=== PATIENT | female | born 1970 | race Caucasian/White ===

== ENCOUNTER → 2020-01-05 17:54 | Outpatient (CLI) | payer OTHER, SELFPAY | PROVIDERS: PCP Internal Medicine; Referring Provider Nurse Practitioner; Visit Provider Nurse Practitioner | DX: Z20.828 Contact with and (suspected) exposure to other viral communicable diseases (principal) | CPT/HCPCS: 87635; G2023; U0003 ==

== ENCOUNTER 2022-11-27 16:59 | Emergency (ER) | payer OTHER, SELFPAY ==
[2022-11-27 17:02] VITALS: BP 144/89; PULSE 93; RESP 18; TEMP 36.6; O2SAT 98; BMI 24.3
--- NOTE | 2022-11-27 17:29 | EDS_ITS ---
HPI <GUDELIA Negro - Last Filed: 11/27/22 20:16> History of Present Illness Chief Complaint: Bite Narrative Narrative: Patient is a 51-year-old female with history of anxiety who presents to the emergency department for full body aches, ongoing fever and chills, bug bite to the right inner thigh. Patient states she started feeling ill this last weekend which was 4 to 5 days ago. She was camping at this time. [place] she [place] not know of any other bug that would have bit her. Patient has a redness circular area to the right inner thigh, she has been having fevers during the mornings and sometimes at night. She was seen by urgent care on Thursday, they were concerned of a possible UTI and started her on Augmentin. She has been on the Augmentin for the last 4 days with minimal relief. Patient states that her right leg is getting more painful. And she is here for evaluation. [facility] <GUDELIA Negro - Last Filed: 11/27/22 20:16> [facility] Medical History (Updated 11/27/22 @ 20:14 by GUDELIA Negro) Depression Home Medications Ibuprofen [Motrin] 800 mg PO TID PRN PRN Pain #20 tabs 03/19/16 [Rx Last Taken Unknown] ondansetron 4 mg disintegrating tablet 4 mg PO Q6H PRN PRN Nausea #20 tabs 03/19/16 [Rx Last Taken Unknown] doxycycline hyclate 100 mg capsule 100 mg PO BID #14 caps 11/27/22 [Rx Last Taken Unknown] Allergy/AdvReac Type Severity Reaction Status Date / Time No Known Allergies Allergy Verified 11/27/22 17:02 Social History Smoking Status: Former smoker ROS <GUDELIA Negro - Last Filed: 11/27/22 20:16> ROS ED ROS Narrative Constitutional: Negative for weight loss. Positive for fever, chills, weakness Eyes: Negative for vision loss, vision change, double vision ENT: Negative for any sore throat, ear pain, congestion Cardiovascular: Negative for any chest pain, tightness, palpitations Respiratory: Negative for any cough, sputum production, hemoptysis, dyspnea, dyspnea on exertion, orthopnea Gastrointestinal: Negative for any abdominal pain, nausea, vomiting, diarrhea, constipation, blood in stool, blood in vomit : Negative for any urinary frequency, dysuria, retention, blood in urine Muscle skeletal: Negative for any muscle joint pain, stiffness, arthralgias, neck pain, back pain. Positive for myalgias Neurological: Negative for any headache, syncope, numbness or tingling, dizziness Skin: Negative for any rashes, lumps, itching, abrasions, laceration. Patient does have a redness circular area to the right inner thigh Psychiatric: Negative for any depression, anxiety, stress, suicidal ideation, homicidal ideation Hematologic: Negative for any easy bruising, excessive bruising, easy bleeding Allergies: Negative for any eczema, hives, rash EXAM <GUDELIA Negro - Last Filed: 11/27/22 20:16> Physical Exam Narrative Exam Narrative: Vital signs reviewed. Patient appears generally well, patient is in no distress HEET: Head normocephalic atraumatic, TMs clear bilaterally. Posterior pharynx is clear, moist mucous membranes. Nares clear bilaterally. Neck: Supple with no lymphadenopathy or tenderness. No signs of meningismus, negative jolt sign. Cardiac: Regular rate and rhythm no murmurs gallops or rubs, equal peripheral pulses bilaterally. Respiratory: Lungs clear to auscultation bilaterally. No chest tenderness. Abdomen: Soft, nontender, nondistended. No abdominal bruit or pulsatile masses. No hepatosplenomegaly Extremities: No peripheral edema, no signs of gross trauma or deformity. Active full range of motion of all extremities. Neuro: Cranial nerves II through XII intact, no focal neurological deficits. On the right inner thigh, patient does have a 4 cm x 4 cm circular redness area with a darker red center. Does have a bull's-eye-like appearance. Skin: Clean dry and intact with no rash, purpura, petechiae, vesicles or pustules. Backs/flank: No CVA tenderness, no midline spinal tenderness, no deformity. Psych: Normal mood and affect. No SI, HI or acute psychosis. Const Vital Signs: 11/27/22 17:02 11/27/22 20:10 Temperature 98 F Temperature Source Temporal Pulse Rate 93 82 Respiratory Rate 18 18 Blood Pressure 144/89 H 124/74 H Blood Pressure Mean 107 Pulse Ox 98 97 Oxygen Delivery Method Room Air <Dr. Leonidas Jama MD - Last Filed: 11/27/22 20:02> Physical Exam Const Vital Signs: 11/27/22 17:02 11/27/22 20:10 Temperature 98 F Temperature Source Temporal Pulse Rate 93 82 Respiratory Rate 18 18 Blood Pressure 144/89 H 124/74 H Blood Pressure Mean 107 Pulse Ox 98 97 Oxygen Delivery Method Room Air [facility] <GUDELIA Negro - Last Filed: 11/27/22 20:16> [facility] Lab Data Labs: Laboratory Results - last 24 hr 11/27/22 11/27/22 11/27/22 17:42 17:42 18:56 WBC 5.4 RBC 4.82 Hgb 13.4 Hct 40.1 MCV 83.2 MCH 27.8 MCHC 33.4 RDW Std Deviation 48.7 H RDW Coeff of Ana 16.0 H Plt Count 219 MPV 9.1 Immature Gran % (Auto) 0.400 Neut % (Auto) 41.7 L Lymph % (Auto) 42.3 H Stanley % (Auto) 10.8 H Eos % (Auto) 3.9 Baso % (Auto) 0.9 Absolute Neuts (auto) 2.3 Absolute Lymphs (auto) 2.28 Nucleated RBC % 0 Differential Comment SCANNED Reactive Lymphocytes 1+ Sodium 140 Potassium 3.6 Chloride 108 H Carbon Dioxide 25.0 Anion Gap 7 BUN 11 Creatinine 0.60 Estim Creat Clear Calc 114.41 Est GFR (MDRD) Af Amer 136 Est GFR (MDRD) Non-Af 112 BUN/Creatinine Ratio 18.3 Glucose 99 Calcium 8.7 Urine Color Yellow Urine Clarity Clear Urine pH 6.0 Ur Specific Caraway 1.020 Urine Protein 15 H Urine Glucose (UA) Normal Urine Ketones 5 H Urine Occult Blood 150 H Urine Nitrite Negative Urine Bilirubin Negative Urine Urobilinogen 4 H Ur Leukocyte Esterase 25 H Urine RBC 0-5 SEEN Urine WBC 0 SEEN Ur Squamous Epith Cells 0 SEEN Urine Bacteria RARE Urine Mucus RARE Treatment and Re-Evaluation :: Patient appears well, patient appears nontoxic, vital signs are stable.Patient presents to the emergency department for a insect bite like infection to the right thigh as well as some fever chills, body aches. Patient is currently on Augmentin. Patient did receive some basic laboratory values, patient CBC was unremarkable, chemistries were unremarkable. Patient did receive a urinalysis which was negative. IV fluids, IV Toradol was given. On reassessment, the patient was feeling well. At this time, patient will be switched from Augmentin to doxycycline. Secondary to the cellulitic region of the right upper thigh from the insect bite she will be given her first dose prior to discharge. At this time she has no nausea or vomiting, she will continue to follow-up outpatient with her PCP. She will call tomorrow for recheck appointment. I spoke with the patient the patient's mother as well as the patient's friend who all had no further questions and verbally understand discharge. Patient given return precautions. <Dr. Leonidas Jama MD - Last Filed: 11/27/22 20:02> [facility] Narrative Medical decision making narrative: I have personally performed a face to face assessment of the patient and have reviewed the PATITO Note. I performed a substantive portion of the visit including all aspects of the following. My mota findings include: History is 51-year-old female with some type of insect bite on her right thigh and has had recent fever and body aches. Was seen in urgent care placed on Augmentin she has been on that 3 to 4 days. Really has been feeling better. The insect bite on her right thigh she thinks looks worse. Initially the urgent care treated her for possible UTI which the culture turned out to be negative. She denies any cough. No abdominal pain. No dysuria. No nausea, vomiting or diarrhea. No other rash. Exam is [well-appearing 51-year-old female. Vital signs stable afebrile. H EENT exam unremarkable. Moist weeks membranes. Neck nontender no lymphadenopathy. Lungs clear to auscultation bilaterally. Heart regular rhythm no murmur. Abdomen soft nontender. Moving all 4 extremities. Neurovascular intact. Right medial proximal thigh there is an insect bite. Mild redness. Mildly tender. No pus. No abscess. No lymphangitic streaking. No breakdown of the skin. No inguinal lymphadenopathy. It does not look like a tick bite nor did she see a tick. Otherwise skin unremarkable. Back normal. Neurologic exam normal.] Medical Decision Making [screening labs were obtained and were unremarkable. White count was normal. Normal H&H. Normal electrolytes. Glucose 99. UA was negative.] Other additions or changes: Repeat exam patient is doing well at 7:55 PM. We will stop the Augmentin. Put her on doxycycline twice daily for 1 week and have her follow-up to ensure she is improving. Lab Data Labs: Laboratory Results - last 24 hr 11/27/22 11/27/22 11/27/22 17:42 17:42 18:56 WBC 5.4 RBC 4.82 Hgb 13.4 Hct 40.1 MCV 83.2 MCH 27.8 MCHC 33.4 RDW Std Deviation 48.7 H RDW Coeff of Ana 16.0 H Plt Count 219 MPV 9.1 Immature Gran % (Auto) 0.400 Neut % (Auto) 41.7 L Lymph % (Auto) 42.3 H Stanley % (Auto) 10.8 H Eos % (Auto) 3.9 Baso % (Auto) 0.9 Absolute Neuts (auto) 2.3 Absolute Lymphs (auto) 2.28 Nucleated RBC % 0 Differential Comment SCANNED Reactive Lymphocytes 1+ Sodium 140 Potassium 3.6 Chloride 108 H Carbon Dioxide 25.0 Anion Gap 7 BUN 11 Creatinine 0.60 Estim Creat Clear Calc 114.41 Est GFR (MDRD) Af Amer 136 Est GFR (MDRD) Non-Af 112 BUN/Creatinine Ratio 18.3 Glucose 99 Calcium 8.7 Urine Color Yellow Urine Clarity Clear Urine pH 6.0 Ur Specific Caraway 1.020 Urine Protein 15 H Urine Glucose (UA) Normal Urine Ketones 5 H Urine Occult Blood 150 H Urine Nitrite Negative Urine Bilirubin Negative Urine Urobilinogen 4 H Ur Leukocyte Esterase 25 H Urine RBC 0-5 SEEN Urine WBC 0 SEEN Ur Squamous Epith Cells 0 SEEN Urine Bacteria RARE Urine Mucus RARE Discharge Plan Triage Chief Complaint: Bite Other Complaint: Chest Pain Dizziness Lower Extremity Injury ED Midlevel Provider: Héctor Lacy ED Provider: Leonidas Jama Dx/Rx/DC Orders Clinical Impression: Infected insect bite, Cellulitis Instructions: ED Cellulitis, ED Insect Bite Prescriptions: New doxycycline hyclate 100 mg capsule 100 mg PO BID Qty: 14 0RF No Action ondansetron 4 MG tablet 4 mg PO Q6H PRN PRN (Reason: Nausea) Qty: 20 0RF Ibuprofen [Motrin] 800 MG tablet 800 mg PO TID PRN PRN (Reason: Pain) Qty: 20 0RF Primary Care Provider: Suzan Elizondo Referrals: Suzan Elizondo MD [Primary Care Provider] - Activity Restrictions/Additional Instructions: Please follow-up with your primary care Disposition Disposition: Home, Self Care
[2022-11-27] MEDS: 0.9% Normal Saline 1,000 ML 1000 ML IV (17:44)
[2022-11-27] MEDS: Ketorolac 15 MG/ML Vial IV (17:44)
[2022-11-27 17:51] LABS: Absolute Lymphocyte Count 2.28 X10^3/uL (0.83-4.51); Absolute Neutrophil Count 2.3 X10^3/uL (2.0-7.7); Basophil# 0.05 X10^3/uL; Basophil% 0.9 % (0-1); Eosinophil# 0.21 X10^3/uL; Eosinophils% 3.9 % (0-5); Hematocrit 40.1 % (37-47); Hemoglobin 13.4 g/dL (12.0-15.0); Lymphocyte # 2.28 X10^3/ul (0.83-4.51); Lymphocyte % 42.3 % (19-41); Mean Corp Hgb Conc 33.4 g/dL (32-36); Mean Corpuscular Hgb 27.8 pg (27.0-32.0); Mean Corpuscular Volume 83.2 fL (81-99); Mean Platelet Vol. 9.1 fl (6.2-12.0); Monocyte# 0.58 X10^3/uL; Monocyte% 10.8 % (0-10); NRBC Flagged by Analyzer 0 % (0-5); Neutrophil # 2.25 X10^3/uL (2.7-7.7); Neutrophil % 41.7 % (47-70); POSITIVE MORPHOLOGY YES; Platelet Count 219 K/mm3 (150-450); RBC Distribution Width SD 48.7 fl (35.1-43.9); Red Blood Count 4.82 M/mm3 (4.2-5.4); White Blood Count 5.4 K/mm3 (4.4-11.0)
[2022-11-27 17:56] LABS: Differential Indicated SCAN CRITERIA MET
[2022-11-27 18:08] LABS: Anion Gap 7 (5-15); BUN 11 mg/dL (7-18); BUN/Creat Ratio 18.3 RATIO (10-20); Calcium,Total 8.7 mg/dL (8.5-10.1); Chloride 108 mmol/L (98-107); EST Glomerular Filtration Rate 112 mL/min (>60); Est Glom Filt Rate - Afr Amer 136 mL/min (>60); Estimated Creatinine Clearance 114.41 ml/min; Glucose 99 mg/dL (74-106); Potassium 3.6 mmol/L (3.5-5.1); Sodium Level 140 mmol/L (136-145)
[2022-11-27 18:39] LABS: Differential Comment SCANNED; Reactive Lymphocyte 1+
[2022-11-27 19:08] LABS: Squamous Epithelial Cells - UA 0 SEEN /hpf (5-10); White Blood Cells 0 SEEN /hpf (0-5)
[2022-11-27 19:12] LABS: Color, Urine Yellow (Yellow); Glucose, Dipstick Normal (Normal); Ketone-Dipstick 5 mg/dl (Negative); Leukocyte Esterase-Dipstick 25 /ul (Negative); Nitrite-Dipstick Negative (Negative); Occult Blood-Urine 150 /ul (Negative); Protein-Dipstick 15 mg/dl (Negative); Urine Bilirubin Dipstick Negative (Negative); Urine Clarity Clear (Clear); Urine Urobilinogen 4 mg/dl (Normal)
[2022-11-27 19:24] LABS: Bacteria RARE /hpf (None Seen); Mucous, Urine RARE /hpf (<or=2+); Red Blood Cells-Urine 0-5 SEEN /hpf (0-5)
[2022-11-27 20:10] VITALS: BP 124/74; PULSE 82; RESP 18; O2SAT 97
[2022-11-27] MEDS: Doxycycline 100 MG CAPSULE PO (20:15)
== END 2022-11-27 20:36 | disposition home or self-care (01) ==
PROVIDERS: Nurse Practitioner; Emergency Provider Emergency Medicine; PCP Internal Medicine; Visit Provider Emergency Medicine
DX: L03.90 Cellulitis, unspecified (principal); Z87.891 Personal history of nicotine dependence; S70.361A Insect bite (nonvenomous), right thigh, initial encounter; W57.XXXA Bitten or stung by nonvenomous insect and other nonvenomous arthropods, initial encounter
CPT/HCPCS: 80048; 81001; 85025; 99283; J7030; A4216

== ENCOUNTER → 2025-05-30 | Outpatient (CLI) | payer OTHER, SELFPAY ==
--- NOTE | 2025-05-30 07:59 | CT_ITS ---
PROCEDURE: LIMITED CHEST CT CARDIAC ONLY 05/30/2025 REASON FOR EXAM: CAD SCREENING TECHNIQUE: Procedure Code: [id number] Modality: CT Procedure: LIMITED CHEST CT CARDIAC ONLY CONTRAST: None. One or more dose reduction techniques were used (e.g., Automated exposure control, adjustment of the mA and/or kV according to patient size, use of iterative reconstruction technique). RADIATION DOSE SUMMARY: CTDlvol: 12.19 mGy DLP: 243.79 mGycm COMPARISON: None FINDINGS: Small mediastinal lymph nodes. Calcified left hilar lymph nodes. Mild degree of coronary calcification of the LAD. The heart is nonenlarged. Mild calcific plaque of the aortic arch. The visualized portions of the lungs are unremarkable. CT/Limited Chest CT Cardiac Only IMPRESSION: Mild coronary artery calcification. Reading Location: [place] [id number]
--- NOTE | 2025-05-30 16:51 | CA.SCORE ---
Calcium Scoring Date of Study:: 05/30/25 Indications Indications: CAD Coronary Calcium Scoring: High-resolution Computed Tomographic imaging of the chest was performed on [05/30/25 ], with particular attention paid to the coronary arteries. Images from the examination were analyzed for the presence and extent of coronary artery calcification , using coronary calcium quantification software. The patient tolerated the procedure well and there were no complications. The results of the coronary calcification analysis are provided below. Findings Coronary Artery Left Main (LM): 0 Left Anterior Descending (LAD): 5.96 Left Circumflex (LCX): 0 Right Coronary Artery (RCA): 0 Total Agatston Score: 5.96 Percentile Rankin Calcium Scoring Interpretation: Different methods to categorize the overall amount of coronary plaque. Overall amount CAC SIS Visual of coronary plaque P1 Mild -100 <2 1-2 vessels with mild amount of plaque P2 Moderate 101-300 3-4 1-2 vessels with moderate amount, 3 vessels with mild amount of plaque P3 Severe 301-999 5-7 3 vessels with moderate amount, 1 vessel with severe amount of plaque P4 Extensive >1000 >8 2-3 vessels with severe amount of plaque Calcium Score: Mild: 1-2 vessels w/mild amount of plaque Conclusion: Mild focal atherosclerotic plaquing.
== END | disposition home or self-care (01) ==
LOC: CT 07:56
PROVIDERS: PCP Internal Medicine; Referring Provider Internal Medicine; Visit Provider Internal Medicine
DX: Z13.6 Encounter for screening for cardiovascular disorders (principal)
CPT/HCPCS: 75571; 76380